=== PATIENT | male | born 1995 | race Caucasian/White ===

== ENCOUNTER 2021-01-05 12:27 | Emergency (ER) | payer OTHER ==
[2021-01-05 12:56] VITALS: BMI 27.0
[2021-01-05] MEDS ORDERED: FAMOTIDINE 20 MG/50 ML IVPB 20 MG/50 ML MG IVPB ONE ×2 (14:21→14:56)
[2021-01-05] MEDS ORDERED: MAG HYDROX/AL HYDROX/SIMETH -MYLANTA- ORAL SUSPENSION PO ONE (14:21)
[2021-01-05] MEDS ORDERED: SODIUM CHLORIDE 1,000 ML IV STA (14:21)
[2021-01-05] MEDS ORDERED: ACETAMINOPHEN 1000 MG/100 ML VIAL IVPB ONE (14:21)
[2021-01-05] MEDS ORDERED: MAG HYDROX/AL HYDROX/SIMETH 30 ML UNIT-DOSE CUP ONE (14:41)
[2021-01-05] MEDS ORDERED: ACETAMINOPHEN INJECTION 100 ML IVPB ONE (14:46)
[2021-01-05 15:06] LABS: BASO % 0.3 % (0-2.0); EOS % 0.8 % (0-4.5); HEMATOCRIT 47.1 % (35.4-49); MCH 27.6 pg (25.7-33.7); MCHC 33.9 g/dl (32.0-35.9); MEAN CELL VOLUME 81.2 fl (80-96); MEAN PLT VOLUME 7.9 fl (7.5-11.1); MONO % 6.2 % (3.8-10.2); NEUT % 57.7 % (42.8-82.8); PLATELET COUNT 260 10^3/uL (134-434); RDW 13.8 % (11.9-15.9); WHITE BLOOD COUNT 5.5 K/mm3 (4.0-10.0)
[2021-01-05 15:31] LABS: CALCIUM 10.3 mg/dL (8.5-10.1)
[2021-01-05 15:32] LABS: ALBUMIN 4.7 g/dl (3.4-5.0)
[2021-01-05 15:36] LABS: BILIRUBIN,TOTAL 0.8 mg/dL (0.2-1)
[2021-01-05 15:37] LABS: TOT PROT 8.7 g/dl (6.4-8.2)
[2021-01-05 19:57] LABS: EPI CELLS 2 /uL (0-25.1); HYALINE CASTS 1 /uL (0-3.1); PH,URINE 5.5 (5.0-8.0); URINE APPEARANCE CLEAR; URINE BACTERIA 1 /uL (0-1359); URINE BILIRUBIN NEGATIVE (NEGATIVE); URINE COLOR YELLOW; URINE GLUCOSE (UA) NEGATIVE (NEGATIVE); URINE KETONE NEGATIVE (NEGATIVE); URINE LEUK ESTERASE NEGATIVE (NEGATIVE); URINE NITRITE NEGATIVE (NEGATIVE); URINE PROTEIN NEGATIVE (NEGATIVE); URINE RBC 227 /uL (0-23.9); URINE UROBILINOGEN 0.2 mg/dL (0.2-1.0); URINE WBC 19 /uL (0-25.8)
[2021-01-05 21:54] VITALS: BP 129/73; PULSE 81; TEMP 98.3
== END 2021-01-05 21:54 | disposition home or self-care (01) ==
LOC: JER 12:27
PROC: 3E0333Z Introduction of Anti-inflammatory into Peripheral Vein, Percutaneous Approach (ICD-10-PCS; principal; 2021-01-05)
PROC: 3E033GC Introduction of Other Therapeutic Substance into Peripheral Vein, Percutaneous Approach (ICD-10-PCS; 2021-01-05)
PROC: 3E0337Z Introduction of Electrolytic and Water Balance Substance into Peripheral Vein, Percutaneous Approach (ICD-10-PCS; 2021-01-05)
DX: R10.31 Right lower quadrant pain (principal)
CPT/HCPCS: 36415; 74177-TC; 76705-TC; 80053; 81003; 83690; 85025; 96361; 96374; 96375; 99285-25; J0131; Q9967